=== PATIENT | female | born 2000 | race Caucasian/White ===

== ENCOUNTER 2025-02-20 09:54 | Emergency (ER) | payer OTHER ==
[~2025-02-20] VITALS: Ht 167.6 cm; Wt 70.5 kg
[2025-02-20] MEDS ORDERED: NORE1TAB51 PO (10:02)
[2025-02-20] MEDS: CYCLOBENZAPRINE 10 MG TABLET PO ONE (10:48)
[2025-02-20] MEDS: LIDOCAINE 5% PATCH TD ONE (10:50)
[2025-02-20] MEDS: KETOROLAC 60 MG/2 ML VIAL IM ONE (10:54)
[2025-02-20] MEDS ORDERED: IBUP600T42 PO (11:47)
[2025-02-20] MEDS ORDERED: CYCL-707 PO (11:47)
[2025-02-20] MEDS ORDERED: LIDO1ADH93 TD (11:47)
[2025-02-20 11:50] VITALS: BP 135/70; TEMP 97.6; O2SAT 100
== END 2025-02-20 12:00 | disposition home or self-care (01) ==
LOC: M ED 09:54
DX: S39.012A Strain of muscle, fascia and tendon of lower back, initial encounter (principal); Y92.39 Other specified sports and athletic area as the place of occurrence of the external cause; Y93.B1 Activity, exercise machines primarily for muscle strengthening; Y99.9 Unspecified external cause status; Z79.1 Long term (current) use of non-steroidal anti-inflammatories (NSAID); Z79.899 Other long term (current) drug therapy
CPT/HCPCS: 96372; 99283; J1885; J2919